=== PATIENT | male | born 1985 ===

== ENCOUNTER 2018-10-30 05:59 | Day surgery (SDC) | payer OTHER ==
[~2018-10-30] VITALS: Ht 177.8 cm; Wt 86.2 kg
[2018-10-30] VITALS (11 sets, daily range): BP systolic 110–141; BP diastolic 56–98
[~2018-10-30 05:59] MED LIST: NKM
[2018-10-30] MEDS ORDERED: celeBREX 200mg Cap **SURGERY PATIENTS ONLY ORAL ONE (06:00)
[2018-10-30] MEDS ORDERED: ceFAZolin 1gm IVPB IVPB ONE ×2 (06:00)
[2018-10-30] MEDS ORDERED: oxyCONTIN 20mg tab ORAL ONE (06:00)
[2018-10-30] MEDS ORDERED: Ketorolac 30mg Inj ONE (07:15)
[2018-10-30] MEDS ORDERED: Lidocaine 1% MPF 10mg/ml 5ml ONE (07:15)
[2018-10-30] MEDS ORDERED: Propofol 200mg/20ml IV ONE (07:15)
[2018-10-30] MEDS ORDERED: Ropivacaine 5mg/ml Vial 30ml INJ ONE (07:15)
[2018-10-30] MEDS ORDERED: EPINEPHrine 1mg/1ml Amp ONE (07:16)
[2018-10-30] MEDS ORDERED: Kenalog-40 1ml Vial ONE (07:17)
[2018-10-30] MEDS ORDERED: Bupivacaine w/Epi 0.25% 30ml Vial INJ ONE (07:17)
[2018-10-30] MEDS ORDERED: Midazolam 2mg/2ml Inj ONE (07:18)
[2018-10-30] MEDS ORDERED: fentaNYL 100 mcg/2 mL IV ONE (07:18)
[2018-10-30] MEDS ORDERED: LR 1000ml ONE (08:00)
[2018-10-30] MEDS ORDERED: NS Irrig 4000ml IRRIG ONE (08:00)
--- NOTE | 2018-10-30 08:18 | Pre-Procedure Note/Attestation ---
Pre-Procedure Note/Attestation Complete Prior to Procedure Planned Procedure: left Procedure Narrative: shoulder diagnostic arthroscopy, sad Indications for Procedure Pre-Operative Diagnosis: left shoulder internal derangment Attestation I attest that I discussed the nature of the procedure; its benefits; risks and complications; and alternatives (and the risks and benefits of such alternatives ), prior to the procedure, with the patient (or the patient's legal client support representative). I attest that, if there was a reasonable possibility of needing a blood transfusion, the patient (or the patient's legal client support representative) was given the [facility] standardized written summary, pursuant to the Akash Steev Blood Safety Act ([place] Health and Safety Code # 1645, as amended). I attest that I re-evaluated the patient just prior to the surgery and that there has been no change in the patient's H&P, except as documented below: Clarence Reed MD Oct 30, 2018 08:18
--- NOTE | 2018-10-30 08:18 | Operative Note - PDOC ---
Operative Note Operative Note Pre-op Diagnosis: left shoulder internal derangment Procedure: see op report Post-op Diagnosis: same as pre-op plus Anesthesia: regional Specimen: none Complications: none Condition: stable Estimated Blood Loss: none Implant(s) used?: No Clarence Reed MD Oct 30, 2018 08:18
[2018-10-30] MEDS ORDERED: LR 1000ml 1,000 ML IVLG SCH (08:35)
--- NOTE | 2018-10-30 08:35 | Anethesia Preoperative Eval ---
Anesthesia Pre-op PMH/ROS General Date of Evaluation: Oct 30, 2018 Time of Evaluation: 07:28 Anesthesiologist: Jae ASA Score: ASA 2 Mallampati Score Class I : Soft palate, uvula, fauces, pillars visible Class II: Soft palate, uvula, fauces visible Class III: Soft palate, base of uvula visible Class IV: Only hard plate visible Mallampati Classification: Class II Surgeon: Derek Diagnosis: L shoulder pain Surgical Procedure: L shoulder scope Anesthesia History: none Family History: no anesthesia problems Allergies: Coded Allergies: No Known Allergies (Unverified , 10/29/18) Medications: see eMAR Patient NPO?: Yes Past Medical History Cardiovascular: Denies: HTN, CAD, SC, valve dz, arrhythmia, other Pulmonary: Denies: asthma, COPD, SUMANTH, other Gastrointestinal/Genitourinary: Reports: GERD - mild; Denies: CRI, ESRD, other Neurologic/Psychiatric: Denies: dementia, CVA, depression/anxiety, TIA, other Endocrine: Denies: DM, hypothyroidism, steroids, other HEENT: Denies: cataract (L), cataract (R), glaucoma, [place] (L), [place] (R), other Hematology/Immune: Denies: anemia, DVT, bleeding disorder, other Musculoskeletal/Integumentary: Denies: OA, RA, DJD, DDD, edema, other PMH Narrative: as above PSxH Narrative: none Anesthesia Pre-op Phys. Exam Physician Exam Last Vital Signs Date Time Temp Pulse Resp B/P (MAP) Pulse Ox O2 Delivery O2 Flow Rate FiO2 10/30/18 06:47 Room Air 10/30/18 06:45 97.8 74 20 138/79 97 Constitutional: NAD Neurologic: CN 2-12 intact Cardiovascular: RRR, no M/R/G Respiratory: CTA Gastrointestinal: S/NT/ND Airway Exam Mallampati Score: Class II MO: full Neck: flexible ROM: full Teeth: intact Dentures: no upper, no lower Anesthesia Pre-op A/P Labs see chart Studies Pre-op Studies: EKG - NSR Risk Assessment & Plan Assessment: ASA 2 Plan: GA with LMA Status Change Before Surgery: No Pre-Antibiotics Drug: Ancef 1gr. Given Within 1 Hr of Incision: Yes Time Given: 08:22 Phu Rowe MD Oct 30, 2018 08:35
[2018-10-30] MEDS ORDERED: Metoclopramide 10mg/2ml Inj IVP PRN (08:45)
[2018-10-30] MEDS ORDERED: Ketorolac 30mg Inj IV PRN (08:45)
[2018-10-30] MEDS ORDERED: Meperidine 50mg/ml Inj(FOR RIGORS ONLY) IV PRN (08:45)
[2018-10-30] MEDS ORDERED: Midazolam 2mg/2ml Inj IVP PRN (08:45)
[2018-10-30] MEDS ORDERED: DiphenhydrAMINE 50mg/ml Inj IVP PRN (08:45)
--- NOTE | 2018-10-30 09:32 | Immediate Post-Op Evaluation ---
Immediate Post-Op Evalulation Immediate Post-Op Evalulation Procedure: L shoulder arthroscopy subacromion decompression Date of Evaluation: Oct 30, 2018 Time of Evaluation: 09:30 IV Fluids: 1000 Blood Products: none Estimated Blood Loss: 50 Urinary Output: none Blood Pressure Systolic: 132 Blood Pressure Diastolic: 76 Pulse Rate: 78 Respiratory Rate: 20 O2 Sat by Pulse Oximetry: 99 Temperature (Fahrenheit): 97.6 Pain Score (1-10): 2 Nausea: No Vomiting: No Complications none Patient Status: reacts Hydration Status: adequate Phu Rowe MD Oct 30, 2018 09:32
--- NOTE | 2018-10-30 11:26 | 48 Hour Post Anesthesia Eval ---
Post Anesthesia Evaluation Procedure: L shoulder arthroscopy subacromion decompression Date of Evaluation: Oct 30, 2018 Time of Evaluation: 11:25 Blood Pressure Systolic: 137 0: 56 Pulse Rate: 72 Respiratory Rate: 22 Temperature (Fahrenheit): 97.6 O2 Sat by Pulse Oximetry: 98 Airway: patent Nausea: No Vomiting: No Pain Intensity: 1 Hydration Status: adequate Cardiopulmonary Status: stable Mental Status/LOC: patient returned to baseline Follow-up Care/Observations: n/a Post-Anesthesia Complications: none Follow-up care needed: ready to discharge Phu Rowe MD Oct 30, 2018 11:26
[2018-10-30] MEDS ORDERED: D5 1/2NS 1,000 ML IV SCH (16:01)
[2018-10-30] MEDS ORDERED: Norco 5mg/325mg tab ORAL PRN (16:01)
[2018-10-30] MEDS ORDERED: HYDROmorphone 1mg/ml Carpuject SUBQ PRN (16:01)
[2018-10-30] MEDS ORDERED: Tylenol #3 tab (300mg/30mg) ORAL PRN (16:01)
--- NOTE | 2018-10-30 18:45 | Operative Note - Dictated ---
DATE OF OPERATION: 10/30/2018 PREOPERATIVE DIAGNOSIS: Left shoulder traumatic bursitis/impingement syndrome. Left shoulder partial rotater cuff tear POSTOPERATIVE DIAGNOSIS: Left shoulder traumatic bursitis/impingement syndrome. Left shoulder partial rptater cuff tear PROCEDURE: 1. Left shoulder diagnostic arthroscopy. 2. Left shoulder subacromial decompression bursectomy, release of CA ligament. 3. Left shoulder debridement/repair rotater cuff tear SURGEON: Clarence Reed M.D. ANESTHESIA: Interscalene with general. INDICATION FOR PROCEDURE: The patient is a pleasant gentleman, who has had continued progressive pain in the left shoulder despite conservative treatment, elected to undergo left shoulder arthroscopic and decompression bursectomy. Risks, limitations, expectations, and complications of procedure were discussed in detail. All questions were addressed. DESCRIPTION OF PROCEDURE: After informed consent was obtained, the patient was brought to the operating room. The patient was placed under interscalene general anesthesia. The patient then carefully placed in beach-chair position. Left shoulder was prepped and draped in a sterile manner. Time-out was performed. An inferolateral stab incision was then made. Trocar was introduced into the glenohumeral joint. Systematic tour of the shoulder was performed. No chondral damage. The anterior labrum was intact along with the superior labrum. Biceps tendon was intact. No gross subluxation. The articular side of the rotator cuff was intact. At this point, the camera was placed in the subacromial space. There was significant hypertrophic bursal tissue and a significant acromial spur. The undersurface of the acromion was identified. Acromioplasty was started from lateral to medial and completed from posterior to anterior. Bursectomy was then completed from the posterior working portal. Once adequate decompression was performed as well as bursectomy, this was removed. Portal sites were then closed using 3-0 Monocryl sutures. Steri-Strips and a sterile dressing were applied. The patient was awoken and taken to recovery room with stable vital signs. ESTIMATED BLOOD LOSS: None. COMPLICATIONS: None. SPECIMENS: None. IMPLANTS: None. Clarence Reed M.D. DR: TAY JOB#: [id number] CC: DELMY
== END 2018-10-30 11:05 | disposition home or self-care (01) ==
LOC: SDS 05:59
DX: M75.42 Impingement syndrome of left shoulder (principal); M75.112 Incomplete rotator cuff tear or rupture of left shoulder, not specified as traumatic; K21.9 Gastro-esophageal reflux disease without esophagitis
CPT/HCPCS: 29822; 29826; 82962; J0171; J0690; J1885; J2250; J2405; J2704; J2795; J3010; J3301; 94003; 94150